=== PATIENT | female | born 1960 | race Hispanic/Latino ===

== ENCOUNTER 2018-08-07 04:38 | Emergency (ER) | payer MEDICAID ==
[2018-08-07 04:49] VITALS: BP 142/87; PULSE 85; RESP 18; TEMP 97.9; O2SAT 99; BMI 30.1
--- NOTE | 2018-08-07 05:42 | ED PDOC ---
Arrival/HPI - General Chief Complaint: Back Pain Time Seen by Provider: 08/07/18 05:07 - History of Present Illness Narrative History of Present Illness (Text): 57 yr old female w/ hx of osteoarthritis p/w L hip pain, knee pain and back pain after mechanical fall 1d prior. Pt notes that 1d ago she slipped and fell in her kitchen and landed on her lower back. She denies any LOC or head impact or being on any blood thinners. She notes that despite taking motrin right before she came into the ER and percocet earlier the morning the pain persists. She notes still being to ambulate with the pain. She denies any mid back pain or upper back pain. She denies any neck pain at this time. She denies any intoxication or FND. No headache. No other complaints. Past Medical History - Tetanus Immunization Tetanus Immunization: Unknown - Pulmonary Hx Asthma: Yes - Musculoskeletal/Rheumatological Hx Arthritis: Yes Hx Herniated Disk: Yes - Psychiatric Hx Depression: No Hx Emotional Abuse: No Hx Physical Abuse: No Hx Substance Use: No - Past Surgical History Past Surgical History: No Previous - Surgical History Other/Comment: ectopic preg - Anesthesia Hx Anesthesia: Yes Hx Anesthesia Reactions: No Hx Malignant Hyperthermia: No - Suicidal Assessment Feels Threatened In Home Enviroment: No Family/Social History Family/Social History: Unknown Family HX Smoking Status: Current Some Days Smoker Hx Alcohol Use: No Hx Substance Use: No Hx Substance Use Treatment: No Allergies/Home Meds Allergies/Adverse Reactions: Allergies No Known Allergies Allergy (Verified 09/30/11 11:28) Home Medications: Home Meds Medication Instructions Recorded Confirmed ALPRAZolam [Xanax] 1 mg PO TID PRN 08/07/18 08/07/18 Review of Systems - Review of Systems Constitutional: absent: Fatigue, Weight Change Eyes: absent: Vision Changes, Photophobia ENT: absent: Hearing Changes, Tinnitus Respiratory: absent: SOB, Cough, Sputum, Wheezing Cardiovascular: absent: Chest Pain, Palpitations, Edema, Calf Pain Gastrointestinal: absent: Abdominal Pain, Stool Changes, Constipation Genitourinary Female: absent: Dysuria, Frequency, Hematuria, Urine Output Changes Musculoskeletal: Arthralgias (L knee and hip), Back Pain. absent: Neck Pain, Joint Swelling, Myalgias Skin: absent: Rash, Pruritis Neurological: absent: Headache, Dizziness Endocrine: absent: Diaphoresis, Polyuria Hemo/Lymphatic: absent: Adenopathy, Easy Bleeding Psychiatric: absent: Anxiety, Depression Physical Exam Vital Signs Temp Pulse Resp BP Pulse Ox 08/07/18 04:49 97.9 F 85 18 142/87 99 Temperature: Afebrile Blood Pressure: Normal Pulse: Regular Respiratory Rate: Normal Appearance: Positive for: Well-Appearing, Non-Toxic, Comfortable Pain Distress: None Mental Status: Positive for: Alert and Oriented X 3 - Systems Exam Head: Present: Atraumatic, Normocephalic Pupils: Present: PERRL Extroacular Muscles: Present: EOMI Conjunctiva: Present: Normal Ears: Present: Normal, NORMAL TM. No: Erythema Mouth: Present: Moist Mucous Membranes Pharnyx: Present: Normal. No: ERYTHEMA, EXUDATE Nose (Internal): Present: Normal Inspection, No Active Bleeding. No: Boggy, Se ptal Hematoma, Epistaxis Neck: Present: Normal Range of Motion. No: Meningeal Signs, MIDLINE TENDERNESS, Paraspinal Tenderness, JVD Respiratory/Chest: Present: Clear to Auscultation, Good Air Exchange. No: Respiratory Distress, Accessory Muscle Use Cardiovascular: Present: Regular Rate and Rhythm, Normal S1, S2. No: Murmurs Abdomen: No: Tenderness, Distention, Peritoneal Signs Back: Present: Normal Inspection. No: CVA Tenderness, Midline Tenderness Upper Extremity: Present: Normal Inspection, Normal ROM, NORMAL PULSES, Neurovascularly Intact, Other (no snuffbox tenderness). No: Cyanosis, Edema, Tenderness, Swelling, Erythema Lower Extremity: Present: NORMAL PULSES, Normal ROM, Tenderness, Neurovascularly Intact, Capillary Refill < 2 s (L knee, anterior point tenderess and L hip, point tenderness to lateral hip), Other (negative thompsons test b/l). No: Edema, CALF TENDERNESS, Josias's Sign, Erythema, Deformity, Temperature Abnormalties Neurological: Present: GCS=15, CN II-XII Intact, Speech Normal Skin: Present: Warm, Dry, Normal Color. No: Rashes Psychiatric: Present: Alert, Oriented x 3, Normal Insight, Normal Concentration Medical Decision Making ED Course and Treatment: 57 yr old F p/w back pain, L knee and L hip pain s/p mechanical fall. No blood thinner usage. No headache or LOC. No enuresis / encoparesis or saddle anesthesia, strong steady gait. No FND. No midline tenderness. Likely muscular pain due to fall. Will thus seek imaging and pain control. 06 imaging unremarkable, remains w/ out cauda equina signs and remains w/ good n/v status in all extremities pt notes pain fully resolved, resting well in NAD. pt ambulating well, clear for d/c home with return indications and f/u. Pt notes she will continue motrin and percocet at home. - RAD Interpretation Radiology Orders: 08/07/18 05:11 HIP MIN 2V W/ PELVIS LT [RAD] Stat KNEE LEFT 2 VIEWS (AP & LAT) [RAD] Stat LS SPINE AP/LAT [RAD] Stat - Medication Orders Current Medication Orders: Discontinued Medications Acetaminophen (Tylenol 325mg Tab) 650 mg PO STAT STA Stop: 08/07/18 05:12 Last Admin: 08/07/18 05:26 Dose: 650 mg MAR Pain/Vitals Document 08/07/18 05:26 RG ([facility]07[facility]18 [id number] Pain Reassessment Is This A Pain ReAssessment? Yes Cyclobenzaprine HCl (Flexeril) 5 mg PO STAT STA Stop: 08/07/18 05:13 Last Admin: 08/07/18 05:26 Dose: 5 mg Disposition/Present on Arrival - Present on Arrival Any Indicators Present on Arrival: No History of DVT/PE: No History of Uncontrolled Diabetes: No Urinary Catheter: No History of Decub. Ulcer: No History Surgical Site Infection Following: None - Disposition Have Diagnosis and Disposition been Completed?: Yes Diagnosis: Knee pain, Hip pain, Fall, Lower back pain Disposition Time: 06:28 Patient Problems: Current Active Problems Problem Status Onset Fall Acute Hip pain Acute Knee pain Acute Lower back pain Acute Condition: STABLE Discharge Instructions (ExitCare): Low Back Pain (DC), Hip Pain (DC), Knee Pain (DC) Additional Instructions: MANOJ LYONS, thank you for letting us take care of you today. Your provider was Kuldip Partida and you were treated for BACK PAIN. The emergency medical care you received today was directed at your acute symptoms. If you were prescribed any medication, please fill it and take as directed. It may take several days for your symptoms to resolve. Return to the Emergency Department if your symptoms worsen, do not improve, or if you have any other problems. Please contact your doctor or call one of the physicians/clinics you have been referred to that are listed on the Patient Visit Information form that is included in your discharge packet. Bring any paperwork you were given at discharge with you along with any medications you are taking to your follow up visit. Our treatment cannot replace ongoing medical care by a primary care provider outside of the emergency department. Thank you for allowing the [facility] team to be part of your care today. If you had an X-Ray or CT scan: A Radiologist will review the ED reading if any change in treatment is needed we will contact you. If you had a blood, urine, or wound culture: It will take several days for the results, if any change in treatment is needed we will contact you. If you had an STI test: It will take 48 hours for the results. Please call after 1 week if you have not heard back. Referrals: Benjamin Hall DO [Staff Provider] - Follow up with primary Sparkle Kasier MD [Family Provider] - Follow up with primary Jessy Landon MD [Medical Doctor] - Follow up with primary [facility] [Outside] - Follow up with primary [facility] [Outside] - [place] up with primary [facility] [place] - Follow up with primary Forms: [facility] ([facility])
--- NOTE | 2018-08-07 09:03 | RAD ---
Date of service: 08/07/2018 PROCEDURE: Left Knee Radiographs. HISTORY: Pain. COMPARISON: None. TECHNIQUE: 2 views obtained. FINDINGS: BONES: Normal. No fracture. JOINTS: Marked narrowing of medial joint compartment with subchondral sclerosis consistent with osteoarthritis. There is mild osteoarthritis of the patellofemoral articulation. The lateral joint compartment appears preserved. There are no articular erosions. JOINT EFFUSION: None. OTHER FINDINGS: None. IMPRESSION: Medial and patellofemoral osteoarthritis. No acute fracture.
--- NOTE | 2018-08-07 09:03 | RAD ---
Date of service: 08/07/2018 PROCEDURE: Radiographs of the Lumbar Spine. HISTORY: fall COMPARISON: No prior. TECHNIQUE: Two views obtained. FINDINGS: BONES: The heights of the vertebral bodies are maintained. Normal alignment is maintained. The transverse processes and posterior elements appear intact. DISC SPACES: There narrowing of the L2-3 intervertebral disc space with subchondral sclerosis consistent with degenerative disc disease. The remaining intervertebral disc spaces are maintained in height. OTHER FINDINGS: None. IMPRESSION: Degenerative disc disease at L2-3. No acute fracture.
--- NOTE | 2018-08-07 09:04 | RAD ---
PROCEDURE: Left Hip X-ray Radiographs. HISTORY: fall COMPARISON: None. TECHNIQUE: 2 views obtained. FINDINGS: BONES: Normal. No fracture. JOINTS: Normal. SOFT TISSUES: Normal. OTHER FINDINGS: None. IMPRESSION: Normal left hip radiographs.
== END 2018-08-07 06:35 | disposition home or self-care (01) ==
LOC: ED 04:38
DX: M25.562 Pain in left knee (principal); M25.552 Pain in left hip; M54.5 Low back pain; W01.0XXA Fall on same level from slipping, tripping and stumbling without subsequent striking against object, initial encounter; Y92.000 Kitchen of unspecified non-institutional (private) residence as the place of occurrence of the external cause